=== PATIENT | female | born 1980 ===

== ENCOUNTER 2017-10-18 07:43 | Emergency (ER) | payer OTHER, BC ==
--- NOTE | 2017-10-18 08:41 | UC ---
Bam Mccord Julia, scribed for Maryanne Esquivle MD on 10/18/17 at 0817 . Complaint Female HPI - HPI Summary HPI Summary: This patient is a 37 year old F presenting to [facility] with a chief complaint of worsening thin pink vaginal bleeding for the past 12 days. Patient reports intermittent mild pelvic pain. Patient denies dysuria. The patient rates the pain 1/10 in severity. Patient denies previous similar symptoms. She states her next menstrual period is expected in the next few days, and her LNMP was 09/18/17 without concern. She reports consistently normal menstrual periods. She is sexually active and does not use protection. 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 She has a reproductive history of A2. Pt states she read on online about possible causes including fibroids, endometriosis cancer. Pt reports h/o ovarian cysts. Pt's medications reviewed this visit. - History Of Current Complaint Chief Complaint: UCGeneralIllness Stated Complaint: PERSONAL Time Seen by Provider: 10/18/17 08:10 Hx Obtained From: Patient Hx Last Menstrual Period: due in next day or two Onset/Duration: Lasting Weeks, Still Present, Worse Since - gradual Timing: Constant Severity Initially: Mild Severity Currently: Moderate Pain Intensity: 1 Pain Scale Used: 0-10 Numeric Associated Signs And Symptoms: Positive: Vaginal Bleeding/Discharge Related Hx: - 3, Para - 1 - Allergies/Home Medications Allergies/Adverse Reactions: Allergies Allergy/AdvReac Type Severity Reaction Status Date / Time No Known Allergies Allergy Verified 10/18/17 07:58 Home Medications: Home Medications NK [No Home Medications Reported] 10/18/17 [History Confirmed 10/18/17] PMH/Surg Hx/FS Hx/Imm Hx Previously Healthy: Yes GI/ History: Other Other GI/ History: endometriosis, two cysts, and two miscarriages - Surgical History Surgical History: Yes Surgery Procedure, Year, and Place: for her endometriosis, two cysts removed - Family History Known Family History: Positive: None - Social History Occupation: Works From/At Home Lives: With Family Alcohol Use: None Substance Use Type: None Smoking Status (MU): Never Smoked Tobacco Review of Systems Constitutional: Negative Skin: Negative Eyes: Negative ENT: Negative Respiratory: Negative Cardiovascular: Negative Gastrointestinal: Abdominal Pain - pelvic pain Genitourinary: Abnormal Bleeding - vaginal bleeding Motor: Negative Neurovascular: Negative Musculoskeletal: Negative Neurological: Negative Psychological: Negative All Other Systems Reviewed And Are Negative: Yes Physical Exam Triage Information Reviewed: Yes Appearance: Well-Appearing, No Pain Distress, Well-Nourished Vital Signs: Initial Vital Signs Temp 97.8 F 10/18/17 07:59 Pulse 89 10/18/17 07:59 Resp 16 10/18/17 07:59 BP 124/73 10/18/17 07:59 Pulse Ox 100 10/18/17 07:59 Vital Signs Reviewed: Yes Eye Exam: Normal Eyes: Positive: Conjunctiva Clear ENT Exam: Normal ENT: Positive: Normal ENT inspection, Hearing grossly normal, Pharynx normal, TMs normal Dental Exam: Normal Neck exam: Normal Neck: Positive: Supple, Nontender, No Lymphadenopathy Respiratory Exam: Normal Respiratory: Positive: Chest non-tender, Lungs clear, Normal breath sounds, No respiratory distress, No accessory muscle use Cardiovascular Exam: Normal Cardiovascular: Positive: RRR, No Murmur, Pulses Normal Abdominal Exam: Normal Abdomen Description: Positive: Nontender, No Organomegaly, Soft Bowel Sounds: Positive: Present Musculoskeletal Exam: Normal Musculoskeletal: Positive: Strength Intact Neurological Exam: Normal Neurological: Positive: Alert Psychological Exam: Normal Psychological: Positive: Normal Response To Family Skin Exam: Normal Diagnostics - Laboratory Diagnostic Studies Completed/Ordered: A Transvaginal US reveals: 1. Sonographic findings are most consistent with an involuting/hemorrhagic follicle in the right ovary in addition to a more normal-appearing follicle. 2. The endometrial stripe is thickened up to 19 mm in thickness which is abnormally thickened for a premenopausal woman. Follow-up pelvic ultrasound can be acquired in 6 weeks to ascertain resolution. Physician has reviewed this report. Re-Evaluation - Re-Evaluation 1 Re-Evaluation Time: 10:18 Change: Unchanged - Informed patient of ultrasound results. /w pt endometrial lining pt has appt with senior facilities manager - recommend call to review result and possible earlier appt. return precautions discussed Complaint Female Dx - Course Course Of Treatment: pt with thin,, pink bleeding x 12 days. mild interminttent pelvic pain. Due for period tomorrow. d/w pt at length. will check urine, . ultrasound. anticipate d/c with senior facilities manager appt as scheduled - Differential Dx/Diagnosis Provider Diagnoses: DUB Discharge - Discharge Plan Condition: Stable Disposition: HOME Discharge Disposition Comment: DUB Patient Education Materials: Dysfunctional Uterine Bleeding (ED), Ovarian Cyst (ED) Referrals: [facility] [Outside] Citlali Hooper MD [Medical Doctor] - No Primary Care Phys,NOPCP [Primary Care Provider] - Additional Instructions: - it is recommended you follow-up with the cnc milling machine operator. discussed today, your uterine lining is thicker than usual and a repeat ultrasound in approximately 6 weeks is recommended. this should be ordered and arranged by your cnc milling machine operator. It is recommended you call establish a follow-up appointment as well as be placed on a cancellation list for Dr. Romelia brunner to alternate ibuprofen (Advil, Motrin) and Tylenol every 3 hours for pain. Take with food Contact the senior facilities manager office for follow-up You have also been given a [facility] referral center- this office can assist with establishing a new primary care provider. The documentation as recorded by the Bam cisneros Julia accurately reflects the service I personally performed and the decisions made by me, Maryanne Esquivel MD.
--- NOTE | 2017-10-18 10:07 | RAD ---
INDICATION: Pelvic pain and 12 days of vaginal bleeding COMPARISON: None. TECHNIQUE: Real-time transabdominal and transvaginal ultrasound examination of the female pelvis including grayscale and Doppler color flow imaging. FINDINGS: Uterus: The uterus is normal in size and echogenicity measuring 7.4 x 3.9 x 5.3 cm. The endometrial stripe is smooth and uniform measuring 19 mm in thickness. Ovaries: The right and left ovary measure 3.9 x 1.9 x 1.9 cm and 2.7 x 1.0 x 2.1 cm, respectively. Normal arterial and venous waveforms are identified. In the right ovary there is an anechoic and avascular structure measuring 1.7 cm in greatest dimension most consistent with a follicle. Also on the right ovary there is an avascular mixed echogenicity structure measuring 1.4 cm in greatest dimension. There is small to moderate amount free fluid in the cul-de-sac. IMPRESSION: 1. Sonographic findings are most consistent with an involuting/hemorrhagic follicle in the right ovary in addition to a more normal-appearing follicle. 2. The endometrial stripe is thickened up to 19 mm in thickness which is abnormally thickened for a premenopausal woman. Follow-up pelvic ultrasound can be acquired in 6 weeks to ascertain resolution.
== END 2017-10-18 10:45 | disposition home or self-care (01) ==
LOC: UCEAST 07:43
DX: N93.9 Abnormal uterine and vaginal bleeding, unspecified (principal); N80.9 Endometriosis, unspecified; R10.2 Pelvic and perineal pain; Z32.02 Encounter for pregnancy test, result negative
CPT/HCPCS: 76830; 81003; 84702; 87086; 99202; G0463